=== PATIENT | male | born 1975 | race Caucasian/White ===

== ENCOUNTER 2018-11-04 11:48 | Emergency (ER) | payer OTHER ==
[~2018-11-04] VITALS: Ht 185.4 cm; Wt 103.2 kg
[2018-11-04 11:49] VITALS: BP 150/91
[2018-11-04] MEDS ORDERED: LISI40TA PO (11:55)
[2018-11-04 13:13] LABS: BASO # 0.1 10^3/uL (0.0-0.2); BASO % 0.8 % (0.0-1.0); EOS # 0.1 10^3/uL (0.0-0.50); EOS % 1.2 % (0.0-3.0); HEMATOCRIT 45.7 % (42.0-52.0); LYMPH # 1.6 10^3/uL (1.5-4.5); LYMPH % 23.9 % (24.0-44.0); MEAN CORPUSCULAR HEMOGLOBIN 30.8 pg (27.0-33.0); MEAN CORPUSCULAR VOLUME 87.9 fl (80.0-96.0); MONO # 0.7 10^3/uL (0.0-0.8); MONO % 10.1 % (0.0-5.0); NEUTROPHILS # 4.3 10^3/uL (1.8-7.7); NEUTROPHILS % 63.7 % (36.0-66.0); PLATELET COUNT, AUTOMATED 205 10^3/uL (150-450); WHITE BLOOD COUNT 6.7 10^3/uL (4.0-10.0)
[2018-11-04 13:39] LABS: ALBUMIN 4.2 GM/DL (3.2-5.2); ALT/SGPT 51 U/L (12-78); AMYLASE 54 U/L (25-115); BILIRUBIN,TOTAL 0.6 MG/DL (0.2-1.0); BLOOD UREA NITROGEN 14 MG/DL (7-18); CALCIUM LEVEL 9.1 MG/DL (8.5-10.1); CARBON DIOXIDE LEVEL 30 MEQ/L (21-32); CHLORIDE LEVEL 101 MEQ/L (98-107); CREATININE FOR GFR 1.08 MG/DL (0.70-1.30); GAMMA GLUTAMYLTRANSPEPTIDASE 104 U/L (15-85); GLOMERULAR FILTRATION RATE > 60.0 (>60); GLUCOSE, FASTING 86 MG/DL (70-100); LIPASE 124 U/L (73-393); POTASSIUM SERUM 4.3 MEQ/L (3.5-5.1); SODIUM LEVEL 136 MEQ/L (136-145); TOTAL PROTEIN 7.5 GM/DL (6.4-8.2)
--- NOTE | 2018-11-04 14:29 | REP ---
Right upper quadrant sonography: History: Right upper quadrant pain after eating. Findings: Scanning through right upper quadrant of the abdomen demonstrates a mildly contracted appearing gallbladder without evidence of stone or polyp. No tenderness to scanning over the gallbladder. Common bile duct is normal measuring 0.3 cm in greatest diameter. There is evidence of mild fatty infiltration of the liver. There is no evidence of hydronephrosis affecting the right kidney. The right kidney measures 12.5 x 6.9 x 6.7 cm. There are multiple echogenic foci in the right kidney which may reflect calculi. The largest of these is 0.9 cm in greatest diameter in the lower pole parenchyma. The pancreas is obscured by abdominal gas. There is no evidence of ascites. No focal liver lesion is seen. Impression: Small somewhat contracted appearing gallbladder. No stone or polyp. Mild fatty infiltration of the liver suspected. Echogenic foci in the right kidney which may reflect intrarenal stones. Electronically Signed by Mason Wang MD 11/04/2018 05:49 P
--- NOTE | 2018-11-08 12:47 | ED PDOC ---
Post-Departure Follow-Up GB nuclear med test faxed to [facility]. pt sent certified letter too. Jacqui Huntley MD Nov 08, 2018 12:47
== END 2018-11-04 15:23 | disposition home or self-care (01) ==
LOC: M ED 11:48
DX: K80.50 Calculus of bile duct without cholangitis or cholecystitis without obstruction (principal); I10 Essential (primary) hypertension; Z88.0 Allergy status to penicillin; Z79.899 Other long term (current) drug therapy

== ENCOUNTER → 2018-11-07 | Outpatient (CLI) | payer OTHER ==
[~2018-11-07] MED LIST: LISI40TA PO
--- NOTE | 2018-11-07 12:42 | REP ---
Hepatobiliary scan and gallbladder ejection fraction: History: Biliary colic. Technique: 6.5 mCi of technetium-99m mebrofenin was injected and sequential anterior images are acquired. 65 minutes after the mebrofenin injection, the patient consumed 8 ounces Ensure and an additional 60 minutes of imaging was acquired. Regions of interest are plotted around the gallbladder. Findings: The initial hepatocellular parenchymal uptake phase is normal and homogeneous. Intra- and extra-hepatic bile ducts and duodenum are labeled by the 10 -minute image. The gallbladder is first labeled on the 15 -minute image. There is normal washout from the liver parenchyma into the gallbladder and small intestine on subsequent images. The gallbladder ejection fraction is 28 %. Values greater than 35 % are considered normal with this technique. Impression: Normal hepatobiliary scan and slightly decreased gallbladder ejection fraction. Electronically Signed by Mason Wang MD 11/07/2018 12:33 P
== END ==
LOC: M RAD 09:08
PROVIDERS: ATTEND Emergency Medicine
DX: K80.20 Calculus of gallbladder without cholecystitis without obstruction (principal)
CPT/HCPCS: 78227; A9537; J2805

== ENCOUNTER → 2018-11-13 | Outpatient (CLI) | payer OTHER ==
[~2018-11-13] MED LIST changes: +GASTROGRAFIN SOLUTION 30ML (Q9963) As Ordered ONE; +ISOVUE-370 76% 100ML VIAL (Q9967) As Ordered ONE
--- NOTE | 2018-11-13 12:00 | REP ---
CT of the abdomen with IV and oral contrast, pelvis not included, for idiopathic biliary colic and an nonspecific abdominal pain. There are no comparisons. The visualized lung nuñez are unremarkable. The hepatic parenchyma is homogeneous and otherwise unremarkable. There is no cholelithiasis, gallbladder wall thickening or pericholecystic fluid. The gallbladder is otherwise unremarkable. There is no intrahepatic or extrahepatic biliary duct dilatation. The pancreas and spleen are normal size and unremarkable. The adrenals and kidneys are unremarkable. The abdominal aorta is unremarkable. There is no retroperitoneal or mesenteric adenopathy. The visualized bowel loops and mesentery are unremarkable. The terminal ileum is visualized and unremarkable. A portion of the appendix is visualized and unremarkable. Impression: Essentially negative CT study of the abdomen, the pelvis is not included. There are continuing biliary symptoms, consider follow-up radionuclide biliary scan with gallbladder ejection fraction and/or MRCP. Electronically Signed by Hever Eason MD 11/13/2018 11:52 A
== END ==
LOC: M RAD 09:23
PROVIDERS: ATTEND General Practice
DX: R10.9 Unspecified abdominal pain (principal)
CPT/HCPCS: 74170; Q9963; Q9967

== ENCOUNTER 2019-05-14 09:28 | Day surgery (SDC) | payer OTHER ==
[~2019-05-14] VITALS: Ht 185.4 cm; Wt 102.1 kg
[~2019-05-14 09:28] MED LIST changes: -GASTROGRAFIN SOLUTION 30ML (Q9963) As Ordered ONE; -ISOVUE-370 76% 100ML VIAL (Q9967) As Ordered ONE; +NS 1,000 ML IV ONE; +SILD50TA PO
[2019-05-14] MEDS ORDERED: LIDOCAINE 2% INJ 100 MG/5 ML SDV (FOR ANES.) As Ordered ONE (10:07)
[2019-05-14] MEDS ORDERED: PROPOFOL 200 MG/20 ML VIAL As Ordered ONE (10:07)
--- NOTE | 2019-05-14 11:01 | ROOR ---
Patient Name: Houston Talley Procedure Date: 05/14/2019 10:41 AM Date of : 1975 Age: 43 Room: [facility] Gender: Male Note Status: Finalized Procedure: Total Colonoscopy to Cecum + ileoscopy Indications: Abdominal pain in the right lower quadrant Providers: Bryan Powers MD Referring MD: OLESYA PIERCE MD Requesting Provider: Medicines: Monitored Anesthesia Care Complications: No immediate complications. Procedure: Pre-Anesthesia Assessment: - The heart rate, respiratory rate, oxygen saturations, blood pressure, adequacy of pulmonary ventilation, and response to care were monitored throughout the procedure. The Colonoscope was introduced through the anus and advanced to the terminal ileum, with identification of the appendiceal orifice and IC valve. The colonoscopy was performed without difficulty. The patient tolerated the procedure well. The quality of the bowel preparation was excellent. Findings: The perianal and digital rectal examinations were normal. Non-bleeding internal hemorrhoids were found during retroflexion. The hemorrhoids were small and Grade I (internal hemorrhoids that do not prolapse). No other significant abnormalities were identified in a careful examination of the remainder of the colon. The terminal ileum appeared normal. The exam was otherwise without abnormality. Impression: - Non-bleeding internal hemorrhoids. - The examined portion of the ileum was normal. - The examination was otherwise normal. - No specimens collected. - The exam was otherwise normal to the cecum. Recommendation: - Patient has a contact number available for emergencies. The signs and symptoms of potential delayed complications were discussed with the patient. Return to normal activities tomorrow. Written discharge instructions were provided to the patient. - High fiber diet. - Discharge patient to home. - Continue present medications. - Repeat colonoscopy in 10 years for screening purposes. - Return to referring physician. - The findings and recommendations were discussed with the patient's family. Bryan Powers MD Bryan Powers MD 05/14/2019 11:00:59 AM Electronically signed by Bryan Powers MD Number of Addenda: 0 Note Initiated On: 05/14/2019 10:41 AM Estimated Blood Loss: Estimated blood loss: none.
[2019-05-14 11:25] VITALS: BP 141/74
== END 2019-05-14 11:38 | disposition home or self-care (01) ==
LOC: M OPP 09:28
PROVIDERS: ATTEND Internal Medicine Gastroenterology
DX: K64.0 First degree hemorrhoids (principal); R10.31 Right lower quadrant pain; I10 Essential (primary) hypertension; Z79.899 Other long term (current) drug therapy; Z88.0 Allergy status to penicillin

== ENCOUNTER → 2020-01-14 | Outpatient (CLI) | payer OTHER ==
[~2020-01-14] MED LIST changes: -NS 1,000 ML IV ONE
--- NOTE | 2020-01-15 16:19 | SLEEPCENT ---
DATE OF PROCEDURE: 01/14/2020 ORDERED BY: MARIELY Wu Nocturnal polysomnography was performed for the titration of pressure therapy in this patient with obstructive sleep apnea syndrome. Apnea-hypopnea index 61.6. For testing a Erinn, Simplus full-face mask of medium size was used; 4 cm of water pressure were applied to the circuit and the lights were extinguished. 6 hours and 12 minutes of data were reviewed. There were 263 minutes of sleep identified. Sleep latency was prolonged at 48 minutes. Rapid eye movement (REM) latency was prolonged at 265 minutes. Sleep architecture improved late in the study. There was one REM cycle noted. Overall sleep efficiency was 71.8%. The electrocardiogram showed a sinus rhythm with an average heart rate of 60 beats per minute. Electroencephalogram (EEG) showed normal waveforms for awake and sleep. Respiratory events persisted prompting an increase in CPAP therapy. Hypopneas persisted with a CPAP pressure of 10. The patient was able to sleep through REM at a CPAP pressure of 12 with one central event being identified. There was minimal activity in the limb leads and remaining measures of sleep physiology were normal. IMPRESSION: Obstructive sleep apnea syndrome (G47.33). RECOMMENDATIONS: Nightly use of pressure therapy 12 cm of water.
== END ==
LOC: M SLEEP 20:00
PROVIDERS: ATTEND Nurse Practitioner Family
DX: G47.33 Obstructive sleep apnea (adult) (pediatric) (principal)

== ENCOUNTER → 2020-07-30 | Outpatient (REF) | payer OTHER ==
[2020-07-30 18:22] LABS: APPEARANCE, URINE CLEAR (CLEAR); BACTERIA, URINE AUTO NEGATIVE (NEGATIVE); BILIRUBIN, URINE AUTO NEGATIVE (NEGATIVE); BLOOD, URINE BLOOD NEGATIVE (NEGATIVE); COLOR, URINE YELLOW (YELLOW); GLUCOSE, URINE (UA) AUTO NEGATIVE (NEGATIVE); KETONE, URINE AUTO NEGATIVE (NEGATIVE); LEUKOCYTE ESTERASE, URINE AUTO NEGATIVE (NEGATIVE); NITRITE, URINE AUTO NEGATIVE (NEGATIVE); PROTEIN, URINE AUTO NEGATIVE (NEGATIVE); RBC, URINE AUTO 0 /HPF (0-3); SPECIFIC GRAVITY URINE AUTO 1.017 (1.002-1.035); SQUAMOUS EPITHELIAL CELL UR AU 0 /HPF (0-6); UROBILINOGEN, URINE AUTO 0.2 mg/dL (0.0-2.0); WBC, URINE AUTO 0 /HPF (0-3)
== END ==
LOC: M SMT 16:54
PROVIDERS: ATTEND Nurse Practitioner Women's Health
DX: R39.15 Urgency of urination (principal)
CPT/HCPCS: 51798; 81001; 87086; G0463